=== PATIENT | female | born 1975 | race Caucasian/White ===

== ENCOUNTER 2016-08-27 20:56 | Emergency (ER) | payer BC ==
[2016-08-27] MEDS ORDERED: Sodium Chloride 0.9% 1000 ML 1,000 ML IV STA (21:24)
[2016-08-27] MEDS ORDERED: BABY ASPIRIN 81 MG CHEW PO ONE (21:24)
[2016-08-27] MEDS ORDERED: LOPRESSOR 5 MG/5 ML INJECTION IV ONE ×4 (21:26→22:38)
[2016-08-27] MEDS ORDERED: BABY ASPIRIN 81 MG CHEW ONE (21:29)
--- NOTE | 2016-08-27 21:29 | ERPHSYRPT ---
- History of Present Illness Time Seen by Provider: 08/27/16 21:24 Source: patient Exam Limitations: no limitations Physician History: 41-year-old white female with history of mitral valve prolapse who has had rapid heart rate in the past, who is on atenolol, arrives with complaint of a rapid heart rate. Symptoms off and on since 420 this afternoon. According to patient she was driving at 420 she noticed her heart rate was running 158. Then again about 1850 she noticed the same symptoms. She does not have any chest pain no shortness of breath no nausea. Patient states that she has been out of her atenolol for 3 days. Past medical history includes mitral valve prolapse, gastroesophageal reflux disease. Past surgical history includes cholecystectomy and hysterectomy. Social history patient denies alcohol tobacco or illicit drug use. Patient states she does not drink caffeine. Timing/Duration: today (today at 420) Severity: moderate Modifying Factors: Improves With: nothing. Worsens With: other Associated Symptoms: other (Rapid heart rate), No nausea, No vomiting, No shortness of breath, No heartburn, No diaphoresis, No cough, No chills, No chest pain, No fever, No headaches, No loss of appetite, No malaise, No rash, No syncope, No seizure, No weakness Allergies/Adverse Reactions: Penicillins Allergy (Verified 04/24/15 08:20) Sulfa (Sulfonamide Antibiotics) Allergy (Verified 04/24/15 08:20) Home Medications: Atenolol 50 mg [Tenormin 50 mg] 50 mg PO HS 04/24/15 [History] Esomeprazole Magnesium [Nexium] 20 mg PO DAILY 04/24/15 [History] Estradiol 1 mg [Estrace 1 mg] 1 mg PO DAILY 04/24/15 [History] Hx Tetanus, Diphtheria Vaccination/Date Given: Yes Hx Influenza Vaccination/Date Given: No Hx Pneumococcal Vaccination/Date Given: No - Review of Systems Constitutional: No Fever, No Chills Eyes: No Symptoms Ears, Nose, & Throat: No Symptoms Respiratory: No Cough, No Dyspnea Cardiac: Palpitations, No Chest Pain, No Edema, No Syncope, No Orthopnea Abdominal/Gastrointestinal: No Abdominal Pain, No Nausea, No Vomiting, No Diarrhea Genitourinary Symptoms: No Dysuria Musculoskeletal: No Back Pain, No Neck Pain Skin: No Rash Neurological: No Dizziness, No Focal Weakness, No Sensory Changes Psychological: No Symptoms Endocrine: No Symptoms All Other Systems: Reviewed and Negative - Past Medical History Pertinent Past Medical History: Yes Neurological History: Migraines Cardiac History: Hypertension, Other Respiratory History: No Pertinent History Endocrine Medical History: No Pertinent History Musculoskeletal History: Arthritis GI Medical History: GERD Other Medical History: maxalt, mitral valve prolapse - Past Surgical History Past Surgical History: Yes Gastrointestinal: Cholecystectomy Female Surgical History: Hysterectomy, Other - Social History Smoking Status: Never smoker Exposure to second hand smoke: No Drug Use: none Patient Lives Alone: No - Nursing Vital Signs Nursing Vital Signs: Initial Vital Signs Temperature 98.3 F Temperature Source Oral Pulse Rate [] 160 Pulse Rate 66 Respiratory Rate 18 Blood Pressure [] 101/55 Blood Pressure 156/100 Pain Intensity 0 - Physical Exam General Appearance: other (well-developed well-nourished white female mildly anxious) Eye Exam: PERRL/EOMI, eyes nml inspection Ears, Nose, Throat Exam: normal ENT inspection, TMs normal, pharynx normal, moist mucous membranes Neck Exam: normal inspection, non-tender, supple, full range of motion Respiratory Exam: normal breath sounds, lungs clear, No respiratory distress Cardiovascular Exam: tachycardia Gastrointestinal/Abdomen Exam: soft, normal bowel sounds, No tenderness, No mass Back Exam: normal inspection, normal range of motion, No CVA tenderness, No vertebral tenderness Extremity Exam: normal inspection, normal range of motion, pelvis stable Neurologic Exam: alert, oriented x 3, cooperative, normal mood/affect, nml cerebellar function, nml station & gait, sensation nml, No motor deficits Skin Exam: normal color, warm, dry, No rash Lymphatic Exam: No adenopathy SpO2 Interpretation: normal (98%) SpO2: 98 Oxygen Delivery: Room Air - Course Nursing assessment & vital signs reviewed: Yes EKG Interpreted by Me: RATE (121 bpm), Sinus Tach, NORMAL AXIS, Other (EKG sinus tachycardia, 1 21 bpm, normal axis, Q waves in the inferior leads, no acute ST or T wave changes noted) - Radiology Exams Chest X-ray Interpretation: Interpreted by me, Other (no acute disease process) Ordered Tests: Active Orders 24 hr Category Date Time Status Assembly Loader STAT Care 08/27/16 21:24 Active EKG-ER Only STAT Care 08/27/16 21:24 Active IV Insertion STAT Care 08/27/16 21:24 Active IV Insertion STAT Care 08/27/16 21:25 Active CHEST 1 VIEW (PORTABLE) Stat Exams 08/27/16 21:25 Taken CBC W DIFF Stat Lab 08/27/16 21:33 Completed CMP Stat Lab 08/27/16 21:33 Completed D-DIMER QUANTITATION Stat Lab 08/27/16 21:33 Completed Manual Differential NC Stat Lab 08/27/16 21:33 Completed TROPONIN Q3H Lab 08/27/16 21:33 Completed TROPONIN Q3H Lab 08/28/16 00:40 Completed TROPONIN Q3H Lab 08/28/16 03:30 Ordered TROPONIN Q3H Lab 08/28/16 06:30 Ordered TROPONIN Q3H Lab 08/28/16 09:30 Ordered Medication Summary Discontinued Medications Generic Name Dose Route Start Last Admin Trade Name Freq PRN Reason Stop Dose Admin Aspirin 324 mg 08/27/16 21:24 08/27/16 21:32 Baby Aspirin 81 Mg Chew PO 08/27/16 21:25 324 mg STAT ONE Administration Aspirin Confirm 08/27/16 21:29 Baby Aspirin 81 Mg Chew Administered 08/27/16 21:30 Dose 324 mg .ROUTE .STK-MED ONE Atenolol 50 mg 08/27/16 21:55 08/27/16 22:04 Tenormin 50 Mg PO 08/27/16 21:56 50 mg STAT ONE Administration Atenolol Confirm 08/27/16 22:02 Tenormin 50 Mg Administered 08/27/16 22:03 Dose 50 mg .ROUTE .STK-MED ONE Sodium Chloride 1,000 mls @ 999 mls/hr 08/27/16 21:24 08/27/16 21:32 Sodium Chloride 0.9% 1000 Ml IV 08/27/16 22:24 999 mls/hr .Q1H1M STA Administration Sodium Chloride Confirm 08/27/16 21:30 Sodium Chloride 0.9% 1000 Ml Administered 08/27/16 21:31 Dose 1,000 mls @ ud .ROUTE .STK-MED ONE Metoprolol Tartrate 2.5 mg 08/27/16 21:26 08/27/16 21:32 Lopressor 5 Mg/5 Ml Injection IV 08/27/16 21:27 2.5 mg STAT ONE Administration Metoprolol Tartrate Confirm 08/27/16 21:30 Lopressor 5 Mg/5 Ml Injection Administered 08/27/16 21:31 Dose 5 mg IV .STK-MED ONE Metoprolol Tartrate 2.5 mg 08/27/16 22:33 08/27/16 22:40 Lopressor 5 Mg/5 Ml Injection IV 08/27/16 22:34 2.5 mg STAT ONE Administration Metoprolol Tartrate Confirm 08/27/16 22:38 Lopressor 5 Mg/5 Ml Injection Administered 08/27/16 22:39 Dose 5 mg IV .STK-MED ONE Lab/Rad Data: Laboratory Result Diagrams 08/27/16 21:33 08/27/16 21:33 Laboratory Results 08/28/16 08/27/16 08/27/16 Range/Units 00:40 21:33 21:33 WBC (4.0-10.5) K/mm3 RBC (4.1-5.4) M/mm3 Hgb (12.0-16.0) gm/dl Hct (35-47) % MCV (78-100) fl MCH (26-32) pg MCHC (32-36) g/dl RDW (11.5-14.0) % Plt Count (150-450) K/mm3 MPV (6-9.5) fl Segmented Neutrophils (36.0-66.0) % Band Neutrophils (0.0-2.0) % Lymphocytes (Manual) (24-44) % Monocytes (Manual) (0.0-12.0) % Eosinophils (Manual) (0.00-3.0) % Differential Comment Atypical Lymphocytes % Platelet Estimate (NORMAL) D-Dimer 410 (0-500) ng/mL Sodium (136-145) mEq/L Potassium (3.5-5.1) mEq/L Chloride (98-107) mEq/L Carbon Dioxide (21-32) mEq/L Anion Gap (5-15) MEQ/L BUN (9-20) mg/dL Creatinine (0.55-1.30) mg/dl Estimated GFR ML/MIN Glucose (70-110) MG/DL Calcium (8.5-10.1) mg/dL Total Bilirubin (0.2-1.0) mg/dL AST (15-37) U/L ALT (12-78) U/L Alkaline Phosphatase (46-116) U/L Troponin I < 0.017 < 0.017 (0.000-0.056) ng/ml Serum Total Protein (6.4-8.2) gm/dL Albumin (3.4-5.0) g/dL 08/27/16 08/27/16 Range/Units 21:33 21:33 WBC 10.0 (4.0-10.5) K/mm3 RBC 4.19 (4.1-5.4) M/mm3 Hgb 12.5 (12.0-16.0) gm/dl Hct 36.8 (35-47) % MCV 87.8 (78-100) fl MCH 29.8 (26-32) pg MCHC 34.0 (32-36) g/dl RDW 12.8 (11.5-14.0) % Plt Count 314 (150-450) K/mm3 MPV 9.5 (6-9.5) fl Segmented Neutrophils 40 (36.0-66.0) % Band Neutrophils 1 (0.0-2.0) % Lymphocytes (Manual) 48 H (24-44) % Monocytes (Manual) 4 (0.0-12.0) % Eosinophils (Manual) 3 (0.00-3.0) % Differential Comment NORMAL Atypical Lymphocytes 4 % Platelet Estimate NORMAL (NORMAL) D-Dimer (0-500) ng/mL Sodium 142 (136-145) mEq/L Potassium 3.3 L (3.5-5.1) mEq/L Chloride 104 (98-107) mEq/L Carbon Dioxide 28.3 (21-32) mEq/L Anion Gap 12.9 (5-15) MEQ/L BUN 11 (9-20) mg/dL Creatinine 1.04 (0.55-1.30) mg/dl Estimated GFR > 60 ML/MIN Glucose 120 H (70-110) MG/DL Calcium 9.5 (8.5-10.1) mg/dL Total Bilirubin 0.30 (0.2-1.0) mg/dL AST 58 H (15-37) U/L ALT 86 H (12-78) U/L Alkaline Phosphatase 118 H (46-116) U/L Troponin I (0.000-0.056) ng/ml Serum Total Protein 7.6 (6.4-8.2) gm/dL Albumin 3.9 (3.4-5.0) g/dL - Progress Progress: improved Progress Note: 08/27/16 23:30 Patient given Lopressor 2.5 mg 2. Patient given IV normal saline. Patient given Tenormin 50 mg. Patient's blood pressure now 140/90 heart rate 84. Patient in no acute distress. Labs are normal EKG no acute changes I had discussed possibly discharging patient however she states she feels nervous and doesn't feel comfortable going home. Will discuss case with Dr. Villagomez at [facility] which is the patient's preference. 08/27/16 23:[address] Albarado who is document control supervisor for , He felt that the patient could be discharged and did not feel the patient needed hospitalization further. Will go ahead and repeat patient's troponin 3 hours after last draw consider discharge with a prescription for Tenormin 50 mg #10. Patient is to follow-up with Monday, sooner if worse or problems. 08/28/16 01:12 Patient in no distress vitals are stable no further tachycardia. Repeat troponin within normal limits. Will discharge. - Departure Time of Disposition: 01:13 Departure Disposition: Home Clinical Impression: Tachycardia, Palpitations Condition: Fair Critical Care Time: No Instructions: Arrhythmias Additional Instructions: Return home rest, plenty of fluids. Tenormin 50 mg orally daily at bedtime #10. Follow-up with Dr. Villagomez Monday, sooner if problems. Return for acute distress or for severe symptoms. Prescriptions: Atenolol 50 mg [Tenormin 50 mg] 50 mg PO QHS #10 tablet
[2016-08-27] MEDS ORDERED: Sodium Chloride 0.9% 1000 ML 1,000 ML ONE (21:30)
[2016-08-27 21:37] LABS: Mean Cell Volume 87.8 fl (78-100); Mean Corpuscular Hemoglobin 29.8 pg (26-32); Mean Platelet Volume 9.5 fl (6-9.5); Platelet Count 314 K/mm3 (150-450); Red Blood Count 4.19 M/mm3 (4.1-5.4); Red Cell Distribution Width 12.8 % (11.5-14.0)
[2016-08-27] MEDS ORDERED: TENORMIN 50 MG PO ONE (21:55)
[2016-08-27 21:58] LABS: ALBUMIN 3.9 g/dL (3.4-5.0); ALKALINE PHOSPHATASE 118 U/L (46-116); ANION GAP 12.9 MEQ/L (5-15); BLOOD UREA NITROGEN 11 mg/dL (9-20); CHLORIDE 104 mEq/L (98-107); Carbon Dioxide 28.3 mEq/L (21-32); Glucose 120 MG/DL (70-110); Potassium 3.3 mEq/L (3.5-5.1); SGOT/AST 58 U/L (15-37); SGPT/ALT 86 U/L (12-78); SODIUM 142 mEq/L (136-145); Total Protein 7.6 gm/dL (6.4-8.2)
[2016-08-27 22:00] LABS: ATYPICAL LYMPHS 4 %; BAND 1 % (0.0-2.0); Eosinophil 3 % (0.00-3.0); Platelet Estimate NORMAL (NORMAL); Total Cells Counted 100
[2016-08-27] MEDS ORDERED: TENORMIN 50 MG ONE (22:02)
[2016-08-28 01:16] VITALS: O2SAT 98
[2016-08-28 01:29] VITALS: BP 139/69; PULSE 72
--- NOTE | 2016-08-28 09:44 | XRAY ---
Indication: Tachycardia. Comparison: April 24, 2015. Portable chest again demonstrates normal heart, lungs, and bony thorax.
== END 2016-08-28 01:30 | disposition home or self-care (01) ==
LOC: ED 20:56
DX: R00.0 Tachycardia, unspecified (principal); R00.2 Palpitations; I10 Essential (primary) hypertension
CPT/HCPCS: 36000; 36415; 71010; 80053; 84484; 85025; 85379; 93005; 93041; 96360; 96374; 96375; 99284; A9270-GY